=== PATIENT | male | born 1990 | race Asian ===

== ENCOUNTER → 2018-04-10 | Outpatient (CLI) | payer OTHER | END | disposition home or self-care (01) | LOC: US 09:11 | PROC: BV44ZZZ Ultrasonography of Scrotum (ICD-10-PCS; principal; 2018-04-10) | DX: R10.2 Pelvic and perineal pain (principal); N50.819 Testicular pain, unspecified ==

== ENCOUNTER → 2018-08-04 | Outpatient (CLI) | payer OTHER | END | disposition home or self-care (01) | LOC: RD 12:42 | DX: M79.645 Pain in left finger(s) (principal) ==

== ENCOUNTER → 2019-03-23 | Outpatient (CLI) | payer OTHER | END | disposition home or self-care (01) | LOC: CT 09:00 | PROC: BW2FZZZ Computerized Tomography (CT Scan) of Neck (ICD-10-PCS; principal; 2019-03-23) | DX: T17.208A Unspecified foreign body in pharynx causing other injury, initial encounter (principal); X58.XXXA Exposure to other specified factors, initial encounter; Y92.9 Unspecified place or not applicable ==